=== PATIENT | female | born 1965 | race Caucasian/White ===

== ENCOUNTER 2025-05-04 12:59 | Emergency (ER) | payer MEDICAID ==
[~2025-05-04] VITALS: Ht 157.5 cm; Wt 104.5 kg
[2025-05-04 13:08] VITALS: BP 176/74; PULSE 78; RESP 16; TEMP 98.1; O2SAT 98
[2025-05-04] MEDS ORDERED: IPRA30SP2 NASAL (13:56)
== END 2025-05-04 14:14 | disposition home or self-care (01) ==
LOC: EMS 13:01
DX: H65.93 Unspecified nonsuppurative otitis media, bilateral (principal)
CPT/HCPCS: 99283; Z7502